=== PATIENT | female | born 2000 | race Caucasian/White ===

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

== ENCOUNTER 2018-01-13 11:19 | Emergency (ER) | payer BC, OTHER ==
--- NOTE | 2018-01-13 11:53 | ER Document Report ---
ED Medical Screen (RME) - General Chief Complaint: Vag Bleeding, +preg <12wks Stated Complaint: VAGINAL BLEEDING,ABDOMINAL PAIN Time Seen by Provider: 01/13/18 11:49 Notes: 6weeks preg with one day of bleeing/cramping TRAVEL OUTSIDE OF THE [place] IN LAST 30 DAYS: No - Related Data Allergies/Adverse Reactions: [place] And Derivatives Allergy (Verified 01/13/18 11:44) Past Medical History - Social History Chew tobacco use (# tins/day): No Frequency of alcohol use: None Drug Abuse: None Pulmonary Medical History: Reports: Hx Asthma Neurological Medical History: Reports: Hx Migraine Renal/ Medical History: Denies: Hx Peritoneal Dialysis Psychiatric Medical History: Reports: Hx Anxiety Past Surgical History: Reports: Hx Tonsillectomy - Immunizations Hx Diphtheria, Pertussis, Tetanus Vaccination: Yes Physical Exam - Vital signs Vitals: Temp Pulse Resp BP Pulse Ox 98.8 F 85 16 130/76 H 98 01/13/18 11:41 01/13/18 11:41 01/13/18 11:41 01/13/18 11:41 01/13/18 11:41 Course - Vital Signs Vital signs: Temp Pulse Resp BP Pulse Ox 98.8 F 85 16 130/76 H 98 01/13/18 11:41 01/13/18 11:41 01/13/18 11:41 01/13/18 11:41 01/13/18 11:41
--- NOTE | 2018-01-13 12:23 | ER Document Report ---
ED GI/ - General Chief Complaint: Vag Bleeding, +preg <12wks Stated Complaint: VAGINAL BLEEDING,ABDOMINAL PAIN Time Seen by Provider: 01/13/18 11:49 Mode of Arrival: Ambulatory Information source: Patient Notes: 17-year-old 6 weeks started pelvic cramping on Saturday. Spotted once last night and again this morning and it is now progressed to heavy vaginal bleeding with clots. No dysuria. No fever or chills. TRAVEL OUTSIDE OF THE [place] IN LAST 30 DAYS: No - Related Data Allergies/Adverse Reactions: [place] And Derivatives Allergy (Verified 01/13/18 11:44) Past Medical History - General Information source: Patient - Social History Smoking Status: Never Smoker Chew tobacco use (# tins/day): No Frequency of alcohol use: None Drug Abuse: None Lives with: Spouse/Significant other Family History: Reviewed & Not Pertinent Patient has suicidal ideation: No Patient has homicidal ideation: No Pulmonary Medical History: Reports: Hx Asthma Neurological Medical History: Reports: Hx Migraine Renal/ Medical History: Denies: Hx Peritoneal Dialysis Psychiatric Medical History: Reports: Hx Anxiety Surgical Hx: Negative Past Surgical History: Reports: Hx Tonsillectomy - Immunizations Hx Diphtheria, Pertussis, Tetanus Vaccination: Yes Review of Systems - Review of Systems Constitutional: No symptoms reported EENT: No symptoms reported Cardiovascular: No symptoms reported Respiratory: No symptoms reported Gastrointestinal: No symptoms reported Genitourinary: No symptoms reported Female Genitourinary: See HPI Musculoskeletal: No symptoms reported Skin: No symptoms reported Hematologic/Lymphatic: No symptoms reported Neurological/Psychological: No symptoms reported Physical Exam - Vital signs Vitals: Temp Pulse Resp BP Pulse Ox 98.8 F 85 16 130/76 H 98 01/13/18 11:41 01/13/18 11:41 01/13/18 11:41 01/13/18 11:41 01/13/18 11:41 Interpretation: Normal - General General appearance: Appears well, Alert - HEENT Head: Normocephalic, Atraumatic Eyes: Normal Conjunctiva: Normal Pupils: PERRL Neck: Supple. No: Lymphadenopathy - Respiratory Respiratory status: No respiratory distress Chest status: Nontender Breath sounds: Normal Chest palpation: Normal - Cardiovascular Rhythm: Regular Heart sounds: Normal auscultation Murmur: No - Abdominal Inspection: Normal Distension: No distension Bowel sounds: Normal Tenderness: Nontender. No: Tender Organomegaly: No organomegaly - Back Back: Normal, Nontender. No: CVA tenderness - 1 - Extremities General upper extremity: Normal inspection, Nontender, Normal color, Normal ROM , Normal temperature General lower extremity: Normal inspection, Nontender, Normal color, Normal ROM , Normal temperature, Normal weight bearing. No: Trell's sign - Neurological Neuro grossly intact: Yes Cognition: Normal Orientation: AAOx4 [place] Coma Scale Eye Opening: Spontaneous [place] Coma Scale Verbal: Oriented [place] Coma Scale Motor: Obeys Commands [place] Coma Scale Total: 15 Speech: Normal Motor strength normal: LUE, RUE, LLE, RLE Sensory: Normal - Psychological Associated symptoms: Normal affect, Normal mood - Skin Skin Temperature: Warm Skin Moisture: Dry Skin Color: Normal Skin irregularity: negative: Rash Course - Re-evaluation Re-evalutation: 01/13/18 14:17 Serum quantitative is only 32. Other lab work is normal. NO IUP or extrauterine. This would not be a 6 week gestation. I will have her get a recheck of her serum quantitative test on Saturday and call me for the results. Patient had a positive test on January 06, 2 at home and at the doctor's office so this quantitative of 32 today would not be consistent with a positive test on January 06. Did explain this to her but did tell her that we should be rechecking the quantitative in 2 days if it is going up there still is a , although nothing seen in the uterus today. 01/13/18 14:46 - Vital Signs Vital signs: Temp Pulse Resp BP Pulse Ox 98.8 F 85 16 130/76 H 98 01/13/18 11:41 01/13/18 11:41 01/13/18 11:41 01/13/18 11:41 01/13/18 11:41 - Laboratory Result Diagrams: 01/13/18 12:10 01/13/18 12:10 Laboratory results interpreted by me: 01/13/18 12:10 Chloride 108 H Beta HCG, Quant 32.92 H Discharge - Discharge Clinical Impression: Vaginal bleeding, impending miscarriage Condition: Good Disposition: HOME, SELF-CARE Instructions: Vaginal Bleeding ([facility]), Acetaminophen, Bleeding During Early ([facility]) Additional Instructions: Return Saturday for repeat serum quantitative test to the lab ordered to [facility], a form has been given to you to er if increased pain or bleeding tylenol for pain up to 4000 mg per day call me on saturday 2 hours after the blood is drawn at [phone] Forms: Follow-Up Laboratory Testing Referrals: ODILON ORELLANA MD [ACTIVE STAFF] - Follow up as needed
[2018-01-13 12:24] LABS: ABSOLUTE EOSINOPHILS # (AUTO) 0.1 10^3/uL (0.0-0.6); ABSOLUTE LYMPHOCYTES (AUTO) 1.9 10^3/uL (0.5-4.7); ABSOLUTE MONOCYTES (AUTO) 0.5 10^3/uL (0.1-1.4); ABSOLUTE NEUT (AUTO) 6.4 10^3/uL (1.7-8.2); BASOPHILS % (AUTO) 0.3 % (0-2); EOSINOPHILS % (AUTO) 1.4 % (0-6); HEMATOCRIT 43.4 % (36.0-47.0); HEMOGLOBIN 15.4 g/dL (12.0-15.5); LYMPHOCYTES % (AUTO) 21.3 % (13-45); MEAN CORPUSCULAR HGB CONC 35.4 g/dL (32.0-36.0); MEAN CORPUSCULAR VOLUME 85 fl (80-97); PLATELET COUNT 293 10^3/uL (150-450); RED BLOOD COUNT 5.13 10^6/uL (3.72-5.28); RED CELL DISTRIBUTION WIDTH 13.5 % (11.5-14.0); TOTAL CELLS COUNTED % (AUTO) 100 %
[2018-01-13 12:40] LABS: ANION GAP 7 (5-19); BLOOD UREA NITROGEN 9 mg/dL (7-20); CALCIUM 9.5 mg/dL (8.4-10.2); CARBON DIOXIDE 28 mmol/L (22-30); CHLORIDE 108 mmol/L (98-107); GLUCOSE 100 mg/dL (75-110); POTASSIUM 4.1 mmol/L (3.6-5.0); SODIUM 142.9 mmol/L (137-145)
--- NOTE | 2018-01-13 14:35 | RADIOLOGY REPORT (SQ) ---
EXAM DESCRIPTION: U/S OB TRANSVAGINAL W/O DOP COMPLETED DATE/TIME: 01/13/2018 2:13 pm REASON FOR STUDY: bleeding/preg COMPARISON: None. TECHNIQUE: Endovaginal static and realtime grayscale images acquired of the pelvis. Additional selec madonna spectral and color Doppler images recorded. All images stored on PACs. BHC.9 LIMITATIONS: None. FINDINGS: UTERUS: No visualized intrauterine . Uterus measures 7 x 5 x 4 cm in size. Endo metrial stripe 11 mm in thickness. RIGHT ADNEXA: Normal ovary with normal vascular flow. Right ovary 2.4 x 2.2 x 1.7 cm in size. No ad nexal free fluid.No adnexal masses. LEFT ADNEXA: Normal ovary with normal vascular flow. Left ovary 2.8 x 2.1 x 1.7 cm in size. No adne xal free fluid.No adnexal masses. FREE FLUID: Trace nonspecific cul-de-sac fluid. OTHER: No other significant finding. IMPRESSION: NO VISUALIZED INTRA- OR EXTRAUTERINE . bHCG LEVEL TOO LOW TO EXPECT VISUALIZATION OF . ECTOPIC CANNOT BE EXCLUDED. FOLLOW-UP ULTRASOUND AND SERIAL BHCG LEVELS STRONGLY RECOMMENDED TO ACCURATELY ASSESS STATU S. TECHNICAL DOCUMENTATION: JOB ID: [id number] [employer]- All Rights Reserved Reading location - IP/workstation name: [email or web address]
[2018-01-13 14:58] VITALS: BP 124/82
== END 2018-01-13 14:58 | disposition home or self-care (01) ==
LOC: ER 11:19
DX: O03.9 Complete or unspecified spontaneous abortion without complication (principal); Z3A.01 Less than 8 weeks gestation of pregnancy
CPT/HCPCS: 36415; 76817; 80048; 84702; 85025; 86900; 86901; 99284

== ENCOUNTER → 2018-01-15 | Outpatient (CLI) | payer OTHER | LOC: LAB 11:35 | PROVIDERS: ATTEND Nurse Practitioner Family | DX: O20.9 Hemorrhage in early pregnancy, unspecified (principal); Z3A.00 Weeks of gestation of pregnancy not specified | CPT/HCPCS: 36415; 84702 ==